=== PATIENT | female | born 1980 | race Caucasian/White ===

== ENCOUNTER 2023-01-31 12:29 | Emergency (ER) | payer OTHER ==
[~2023-01-31] VITALS: Wt 63.5 kg
== END 2023-01-31 16:18 | disposition home or self-care (01) ==
LOC: ED 12:29
DX: S90.31XA Contusion of right foot, initial encounter (principal); Z88.1 Allergy status to other antibiotic agents; W20.8XXA Other cause of strike by thrown, projected or falling object, initial encounter; Y93.89 Activity, other specified; Y92.69 Other specified industrial and construction area as the place of occurrence of the external cause; Y99.0 Civilian activity done for income or pay

== ENCOUNTER 2023-08-22 09:44 | Emergency (ER) | payer BC ==
[~2023-08-22] VITALS: Ht 172.7 cm; Wt 54.0 kg
[2023-08-22] MEDS ORDERED: METHIMAZOLE10 MG PO (10:19)
[2023-08-22] MEDS ORDERED: METFORMIN HYD1000 MG PO (10:19)
[2023-08-22] MEDS ORDERED: PROPRANOLOL HCL10 MG PO (10:19)
[2023-08-22] MEDS ORDERED: VIBRAMYCIN100 MG PO (18:04)
[2023-08-22] MEDS ORDERED: HYDROCODONE-AC1 EAC1 PO (18:04)
== END 2023-08-22 14:39 | disposition left against medical advice (07) ==
LOC: ED 09:44
DX: L02.416 Cutaneous abscess of left lower limb (principal); Z53.21 Procedure and treatment not carried out due to patient leaving prior to being seen by health care provider

== ENCOUNTER 2023-08-22 16:39 | Emergency (ER) | payer BC ==
[~2023-08-22] VITALS: Ht 172.7 cm; Wt 54.0 kg
[~2023-08-22 16:39] MED LIST: METFORMIN HYD1000 MG PO; METHIMAZOLE10 MG PO; PROPRANOLOL HCL10 MG PO
[2023-08-22] MEDS ORDERED: HYDROCODONE-AC1 EAC1 PO (18:04)
[2023-08-22] MEDS ORDERED: VIBRAMYCIN100 MG PO (18:04)
== END 2023-08-22 18:22 | disposition home or self-care (01) ==
LOC: ED 16:39
DX: L02.416 Cutaneous abscess of left lower limb (principal); E11.9 Type 2 diabetes mellitus without complications; F17.200 Nicotine dependence, unspecified, uncomplicated; Z88.6 Allergy status to analgesic agent; Z88.8 Allergy status to other drugs, medicaments and biological substances; Z79.899 Other long term (current) drug therapy

== ENCOUNTER 2023-08-25 07:14 | Emergency (ER) | payer BC ==
[~2023-08-25] VITALS: Ht 154.9 cm; Wt 54.0 kg
[~2023-08-25 07:14] MED LIST changes: +HYDROCODONE-AC1 EAC1 PO; +VIBRAMYCIN100 MG PO
[2023-08-25 07:49] LABS: EOS # 0.1 10*3/uL (0.0-0.4); EOS % 1.2 % (1.0-4.0); HEMATOCRIT 45.1 % (37.0-47.0); LYMPH # 1.3 10*3/uL (1.3-4.4); LYMPH % 26.2 % (27.0-41.0); MEAN CELL VOLUME 79.4 fl (81.0-99.0); MEAN CORPUSCULAR HGB 26.9 pg (27.0-31.0); MEAN CORPUSCULAR HGB CONC 33.9 g/dl (33.0-37.0); MEAN PLATELET VOLUME 11.4 fl (9.6-12.3); MONO # 0.7 10*3/uL (0.1-1.0); MONO % 13.3 % (3.0-9.0); NEUT % 58.9 % (47.0-73.0); PLATELET COUNT AUTOMATED 260 10*3/uL (130-400); RED BLOOD COUNT 5.68 10*6/uL (4.10-5.10); RED CELL DISTRI WIDTH 12.6 % (0-14.5); WHITE BLOOD COUNT 5.1 10*3/uL (4.8-10.8)
[2023-08-25] MEDS ORDERED: CLINDAMYCIN HC300 MG PO (08:15)
[2023-08-25] MEDS ORDERED: COLACE 2-IN-11 EACH PO (08:15)
[2023-08-25 11:41] LABS: ALKALINE PHOSPHATASE 115 U/L (46-116); BUN 9 mg/dl (9-23); CHLORIDE 96 mmol/L (98-107); POTASSIUM 3.9 mmol/L (3.4-5.1); SGPT/ALT 9 U/L (5-49); TOTAL PROTEIN 7.1 gm/dL (6.0-8.0)
== END 2023-08-25 10:55 | disposition home or self-care (01) ==
LOC: ED 07:14
PROVIDERS: Emergency Medicine
DX: L02.416 Cutaneous abscess of left lower limb (principal); E11.65 Type 2 diabetes mellitus with hyperglycemia; Z88.6 Allergy status to analgesic agent; Z88.1 Allergy status to other antibiotic agents; Z88.8 Allergy status to other drugs, medicaments and biological substances; Z79.2 Long term (current) use of antibiotics; Z79.899 Other long term (current) drug therapy

== ENCOUNTER 2023-10-29 09:28 | Emergency (ER) | payer SELFPAY ==
[~2023-10-29] VITALS: Ht 172.7 cm; Wt 54.4 kg
[~2023-10-29 09:28] MED LIST changes: +CLINDAMYCIN HC300 MG PO; +COLACE 2-IN-11 EACH PO
[2023-10-29] MEDS ORDERED: MORPHINE Sulfate 2 MG/ML SYR IV ONE (09:45)
[2023-10-29] MEDS ORDERED: Metoclopramide Hydrochloride 10 MG/2 ML AMP IV ONE (09:45)
[2023-10-29] MEDS ORDERED: SODIUM CHLORIDE 0.9% 1,000 ML IV ONE (09:45)
[2023-10-29] MEDS ORDERED: FAMOTIDINE 50 ML IV ONE (09:45)
[2023-10-29] MEDS ORDERED: IOHEXOL 300 MG/ML 100 ML VIAL IV ONE (09:45)
[2023-10-29] MEDS ORDERED: diphenhydrAMINE hydrochloride 50 MG/ML VIAL IV ONE (09:45)
[2023-10-29 09:59] LABS: BILIRUBIN Negative (Negative); BLOOD Negative (Negative); CLARITY Clear (Clear); COLOR Yellow (Yellow); GLUCOSE 3+ (Negative); KETONE 3+ (Negative); LEUKO ESTERASE Negative (Negative); NITRITE Negative (Negative); PH 5.5 (4.5-8.0); SPECIFIC GRAVITY >= 1.030 (1.001-1.030); UROBILINOGEN 0.2 E.U./dl (0.0-1.0)
[2023-10-29 10:04] LABS: EOS # 0.1 10*3/uL (0.0-0.4); HEMATOCRIT 45.7 % (37.0-47.0); LYMPH # 2.2 10*3/uL (1.3-4.4); MEAN CELL VOLUME 80.5 fl (81.0-99.0); MEAN CORPUSCULAR HGB 27.3 pg (27.0-31.0); MEAN CORPUSCULAR HGB CONC 33.9 g/dl (33.0-37.0); MEAN PLATELET VOLUME 11.1 fl (9.6-12.3); NEUT # 3.2 10*3/uL (2.3-7.9); NEUT % 48.5 % (47.0-73.0); PLATELET COUNT AUTOMATED 259 10*3/uL (130-400); RED BLOOD COUNT 5.68 10*6/uL (4.10-5.10); WHITE BLOOD COUNT 6.5 10*3/uL (4.8-10.8)
[2023-10-29 10:24] LABS: BACTERIA TRACE; RBC 0-2 rbc/hpf (0-2); WBC 0-2 wbc/hpf (0-5)
[2023-10-29 10:39] LABS: ALKALINE PHOSPHATASE 94 U/L (46-116); BUN 8 mg/dl (9-23); CHLORIDE 97 mmol/L (98-107); LIPASE 38 U/L (12-53); POTASSIUM 4.1 mmol/L (3.4-5.1); SGPT/ALT 9 U/L (5-49); TOTAL PROTEIN 6.8 gm/dL (6.0-8.0)
[2023-10-29] MEDS ORDERED: INSULIN REGULAR, HUMAN 1 UNIT/0.01 ML IV ONE ×2 (11:00→12:25)
[2023-10-29] MEDS ORDERED: ONDANSETRON4 MG SL (12:22)
[2023-10-29] MEDS ORDERED: DICYCLOMINE HYD10 MG PO (12:22)
[2023-10-29] MEDS ORDERED: METFORMIN HYD1000 MG PO (12:22)
== END 2023-10-29 12:37 | disposition home or self-care (01) ==
LOC: ED 09:28
PROVIDERS: Emergency Medicine
DX: K52.9 Noninfective gastroenteritis and colitis, unspecified (principal); E11.65 Type 2 diabetes mellitus with hyperglycemia; Z88.6 Allergy status to analgesic agent; Z88.8 Allergy status to other drugs, medicaments and biological substances; Z87.891 Personal history of nicotine dependence

== ENCOUNTER 2023-12-01 08:34 | Inpatient (IN) | payer BC ==
[~2023-12-01] VITALS: Ht 172.7 cm; Wt 54.7 kg
[~2023-12-01 08:34] MED LIST changes: +DICYCLOMINE HYD10 MG PO; +ONDANSETRON4 MG SL
[2023-12-01 08:44] VITALS: BP 128/82
[2023-12-01] MEDS ORDERED: Ondansetron Hydrochloride 4 MG/2 ML VIAL IV ONE (08:55)
[2023-12-01] MEDS ORDERED: MORPHINE Sulfate 2 MG/ML SYR IV ONE (08:55)
[2023-12-01] MEDS ORDERED: SODIUM CHLORIDE 0.9% 1,000 ML IV ONE ×2 (08:55→10:35)
[2023-12-01 09:06] LABS: BASO % 0.2 % (0.0-1.0); EOS # 0.1 10*3/uL (0.0-0.4); EOS % 1.4 % (1.0-4.0); HEMATOCRIT 47.5 % (37.0-47.0); LYMPH # 2.7 10*3/uL (1.3-4.4); LYMPH % 40.4 % (27.0-41.0); MEAN CELL VOLUME 80.5 fl (81.0-99.0); MEAN CORPUSCULAR HGB 27.6 pg (27.0-31.0); MEAN CORPUSCULAR HGB CONC 34.3 g/dl (33.0-37.0); MONO # 0.6 10*3/uL (0.1-1.0); MONO % 8.7 % (3.0-9.0); NEUT # 3.3 10*3/uL (2.3-7.9); NEUT % 48.8 % (47.0-73.0); PLATELET COUNT AUTOMATED 295 10*3/uL (130-400); RED CELL DISTRI WIDTH 11.9 % (0-14.5); WHITE BLOOD COUNT 6.7 10*3/uL (4.8-10.8)
[2023-12-01 09:47] LABS: ALKALINE PHOSPHATASE 118 U/L (46-116); BUN 13 mg/dl (9-23); CHLORIDE 97 mmol/L (98-107); POTASSIUM 4.7 mmol/L (3.4-5.1); SGPT/ALT 11 U/L (5-49); TOTAL PROTEIN 7.3 gm/dL (6.0-8.0)
[2023-12-01 10:10] LABS: VENOUS PH 7.248 (7.37-7.45)
[2023-12-01] MEDS ORDERED: INSULIN REGULAR IN 0.9 % NACL 100 ML IV SCH ×2 (10:15→11:25)
[2023-12-01] MEDS ORDERED: INSULIN REGULAR, HUMAN 1 UNIT/0.01 ML IV ONE (10:15)
[2023-12-01 10:30] VITALS: BP 128/85
[2023-12-01] MEDS ORDERED: SODIUM CHLORIDE 0.9% 1,000 ML IV SCH (10:35)
[2023-12-01] MEDS ORDERED: Ondansetron Hydrochloride 4 MG/2 ML VIAL IV PRN (11:20)
[2023-12-01] MEDS ORDERED: DEXTROSE 5% SALINE 0.9% 1,000 ML IV SCH (12:55)
[2023-12-01 13:00] VITALS: BP 112/67
[2023-12-01 14:05] VITALS: BP 109/68
[2023-12-01 14:27] LABS: BUN 10 mg/dl (9-23); CHLORIDE 111 mmol/L (98-107); POTASSIUM 3.8 mmol/L (3.4-5.1)
[2023-12-01] MEDS ORDERED: DEXTROSE 10 % IN WATER 250 ML IV PRN ×2 (15:25→18:45)
[2023-12-01] MEDS ORDERED: Insulin Glargine, Recombinan 1 UNIT/0.01 ML SC SCH (15:45)
[2023-12-01 16:00] VITALS: BP 114/69
[2023-12-01] MEDS ORDERED: INSULIN LISPRO 1 UNIT/0.01 ML SQ SCH (16:30)
[2023-12-01 18:15] LABS: VENOUS PH 7.336 (7.37-7.45)
[2023-12-01 18:32] LABS: BUN 9 mg/dl (9-23); CHLORIDE 106 mmol/L (98-107); POTASSIUM 3.7 mmol/L (3.4-5.1)
[2023-12-01 20:00] VITALS: BP 136/86
[2023-12-01] MEDS ORDERED: Propranolol Hydrochloride 10 MG TAB PO SCH (22:00)
[2023-12-01] MEDS ORDERED: METHIMAZOLE 5 MG TABLET PO SCH (22:00)
[2023-12-01 22:08] LABS: VENOUS PH 7.375 (7.37-7.45)
[2023-12-01 22:41] LABS: BUN 9 mg/dl (9-23); CHLORIDE 104 mmol/L (98-107); POTASSIUM 4.5 mmol/L (3.4-5.1)
[2023-12-01] MEDS ORDERED: INSULIN REGULAR, HUMAN 1 UNIT/0.01 ML SC ONE (22:50)
[2023-12-02] VITALS: BP 126/78
[2023-12-02 04:00] VITALS: BP 109/67
[2023-12-02 04:19] LABS: BASO % 0.2 % (0.0-1.0); EOS # 0.2 10*3/uL (0.0-0.4); EOS % 2.7 % (1.0-4.0); HEMATOCRIT 40.4 % (37.0-47.0); LYMPH # 3.3 10*3/uL (1.3-4.4); LYMPH % 50.7 % (27.0-41.0); MEAN CELL VOLUME 80.6 fl (81.0-99.0); MEAN CORPUSCULAR HGB 27.5 pg (27.0-31.0); MEAN CORPUSCULAR HGB CONC 34.2 g/dl (33.0-37.0); MEAN PLATELET VOLUME 10.9 fl (9.6-12.3); MONO # 0.8 10*3/uL (0.1-1.0); MONO % 11.9 % (3.0-9.0); NEUT # 2.2 10*3/uL (2.3-7.9); PLATELET COUNT AUTOMATED 228 10*3/uL (130-400); RED BLOOD COUNT 5.01 10*6/uL (4.10-5.10); RED CELL DISTRI WIDTH 12.3 % (0-14.5); WHITE BLOOD COUNT 6.6 10*3/uL (4.8-10.8)
[2023-12-02 04:45] LABS: ALKALINE PHOSPHATASE 84 U/L (46-116); BUN 12 mg/dl (9-23); CHLORIDE 106 mmol/L (98-107); CHOLESTEROL 190 mg/dL (<200); FREE T4 3.14 ng/dl (0.89-1.76); LDL CHOLESTEROL 96 mg/dL (9-159); POTASSIUM 3.7 mmol/L (3.4-5.1); SGPT/ALT 16 U/L (5-49); TOTAL PROTEIN 5.5 gm/dL (6.0-8.0); TRIGLYCERIDES 273 mg/dl (<150)
[2023-12-02] MEDS ORDERED: Pantoprazole Sodium 40 MG VIAL IV SCH (06:00)
[2023-12-02 07:10] LABS: VITAMIN D, 25-HYDROXY 23.5 ng/mL (30-100)
[2023-12-02 08:00] VITALS: BP 115/75
[2023-12-02] MEDS ORDERED: Enoxaparin Sodium 40 MG/0.4 ML SYR SC SCH (10:00)
[2023-12-02] MEDS ORDERED: Insulin Glargine, Recombinan 1 UNIT/0.01 ML SC SCH (10:00)
[2023-12-02 11:07] LABS: HEMOGOLBIN A1C >15.5 % (4.8-5.6)
[2023-12-02] MEDS ORDERED: LANTUS SOL100 UNIT/1 SC (11:28)
[2023-12-02] MEDS ORDERED: PROPRANOLOL HCL10 MG PO (11:28)
[2023-12-02] MEDS ORDERED: METHIMAZOLE10 MG PO (11:28)
[2023-12-02] MEDS ORDERED: METFORMIN HYD1000 MG PO (11:28)
[2023-12-02] MEDS ORDERED: HUMALOG100 UNIT/1 SC (11:28)
== END 2023-12-02 12:51 | disposition home or self-care (01) | DRG 638 ==
LOC: ED 08:34 → EDHOLD 10:51 → ICCU 13:21
PROVIDERS: Emergency Medicine; Student in an Organized Health Care Education/Training Program; ADMIT Internal Medicine; ATTEND Internal Medicine
DX: E11.10 Type 2 diabetes mellitus with ketoacidosis without coma (principal); E87.1 Hypo-osmolality and hyponatremia; R07.89 Other chest pain; E05.00 Thyrotoxicosis with diffuse goiter without thyrotoxic crisis or storm; R00.0 Tachycardia, unspecified; D75.1 Secondary polycythemia; Z88.8 Allergy status to other drugs, medicaments and biological substances; Z91.09 Other allergy status, other than to drugs and biological substances; Z79.899 Other long term (current) drug therapy; Z79.01 Long term (current) use of anticoagulants; Z79.2 Long term (current) use of antibiotics; Z87.891 Personal history of nicotine dependence

== ENCOUNTER → 2024-02-26 | Outpatient (CLI) | payer BC ==
[~2024-02-26] MED LIST changes: +HUMALOG100 UNIT/1 SC; +LANTUS SOL100 UNIT/1 SC
== END | disposition home or self-care (01) ==
LOC: RESCLI 03:12
PROVIDERS: ATTEND Internal Medicine
DX: E05.00 Thyrotoxicosis with diffuse goiter without thyrotoxic crisis or storm (principal); E11.9 Type 2 diabetes mellitus without complications; K21.9 Gastro-esophageal reflux disease without esophagitis; F32.9 Major depressive disorder, single episode, unspecified; Z79.84 Long term (current) use of oral hypoglycemic drugs; Z79.899 Other long term (current) drug therapy; Z88.1 Allergy status to other antibiotic agents; Z88.8 Allergy status to other drugs, medicaments and biological substances; Z98.890 Other specified postprocedural states

== ENCOUNTER → 2024-03-12 | Outpatient (CLI) | payer BC | END | disposition home or self-care (01) | LOC: CARD 11:50 | PROVIDERS: ATTEND Student in an Organized Health Care Education/Training Program | DX: R00.0 Tachycardia, unspecified (principal); E05.00 Thyrotoxicosis with diffuse goiter without thyrotoxic crisis or storm ==

== ENCOUNTER → 2024-03-25 | Outpatient (CLI) | payer BC | END | disposition home or self-care (01) | LOC: RESCLI 02:18 | PROVIDERS: ATTEND Student in an Organized Health Care Education/Training Program | DX: E11.9 Type 2 diabetes mellitus without complications (principal); E05.00 Thyrotoxicosis with diffuse goiter without thyrotoxic crisis or storm; K21.9 Gastro-esophageal reflux disease without esophagitis; F32.9 Major depressive disorder, single episode, unspecified; Z79.4 Long term (current) use of insulin; Z79.899 Other long term (current) drug therapy; Z88.3 Allergy status to other anti-infective agents; Z88.8 Allergy status to other drugs, medicaments and biological substances ==

== ENCOUNTER → 2024-05-07 | Outpatient (CLI) | payer BC ==
[2024-05-07 08:43] LABS: EOS # 0.1 10*3/uL (0.0-0.4); EOS % 2.1 % (1.0-4.0); HEMATOCRIT 45.8 % (37.0-47.0); LYMPH # 2.1 10*3/uL (1.3-4.4); LYMPH % 32.3 % (27.0-41.0); MEAN CELL VOLUME 79.1 fl (81.0-99.0); MEAN CORPUSCULAR HGB 27.3 pg (27.0-31.0); MEAN CORPUSCULAR HGB CONC 34.5 g/dl (33.0-37.0); MEAN PLATELET VOLUME 11.1 fl (9.6-12.3); MONO # 0.5 10*3/uL (0.1-1.0); MONO % 7.6 % (3.0-9.0); NEUT # 3.7 10*3/uL (2.3-7.9); NEUT % 57.8 % (47.0-73.0); PLATELET COUNT AUTOMATED 240 10*3/uL (130-400); RED BLOOD COUNT 5.79 10*6/uL (4.10-5.10); RED CELL DISTRI WIDTH 12.1 % (0-14.5); WHITE BLOOD COUNT 6.3 10*3/uL (4.8-10.8)
[2024-05-07 09:28] LABS: ALKALINE PHOSPHATASE 125 U/L (46-116); BUN 9 mg/dl (9-23); CHLORIDE 100 mmol/L (98-107); CHOLESTEROL 178 mg/dL (<200); FREE T4 2.27 ng/dl (0.89-1.76); LDL CHOLESTEROL 71 mg/dL (9-159); POTASSIUM 3.9 mmol/L (3.4-5.1); SGPT/ALT 18 U/L (5-49); TOTAL PROTEIN 6.8 gm/dL (6.0-8.0); TRIGLYCERIDES 250 mg/dl (<150)
[2024-05-08 12:08] LABS: HEMOGOLBIN A1C >15.5 % (4.8-5.6)
== END | disposition home or self-care (01) ==
LOC: LAB 08:23
PROVIDERS: Internal Medicine Endocrinology, Diabetes & Metabolism; Student in an Organized Health Care Education/Training Program; ATTEND Internal Medicine
DX: E05.00 Thyrotoxicosis with diffuse goiter without thyrotoxic crisis or storm (principal); E11.9 Type 2 diabetes mellitus without complications

== ENCOUNTER → 2024-07-22 | Outpatient (CLI) | payer BC ==
[~2024-07-22] MED LIST changes: +NEURONTIN100 MG PO
[2024-07-22 12:36] LABS: BASO % 0.1 % (0.0-1.0); EOS # 0.1 10*3/uL (0.0-0.4); EOS % 0.6 % (1.0-4.0); HEMATOCRIT 48.9 % (37.0-47.0); MEAN CORPUSCULAR HGB 26.7 pg (27.0-31.0); MEAN CORPUSCULAR HGB CONC 33.3 g/dl (33.0-37.0); MONO # 1.1 10*3/uL (0.1-1.0); MONO % 8.5 % (3.0-9.0); NEUT # 9.7 10*3/uL (2.3-7.9); NEUT % 74.3 % (47.0-73.0); PLATELET COUNT AUTOMATED 256 10*3/uL (130-400); RED BLOOD COUNT 6.11 10*6/uL (4.10-5.10); RED CELL DISTRI WIDTH 12.9 % (0-14.5)
[2024-07-22 13:10] LABS: ALKALINE PHOSPHATASE 126 U/L (46-116); BUN 15 mg/dl (9-23); CHLORIDE 106 mmol/L (98-107); FREE T4 1.18 ng/dl (0.89-1.76); LIPASE 26 U/L (12-53); POTASSIUM 3.7 mmol/L (3.4-5.1); SGPT/ALT 13 U/L (5-49); TOTAL PROTEIN 7.5 gm/dL (6.0-8.0)
== END | disposition home or self-care (01) ==
LOC: RESCLI 11:21
PROVIDERS: Student in an Organized Health Care Education/Training Program; ATTEND Internal Medicine
DX: R10.9 Unspecified abdominal pain (principal); E05.00 Thyrotoxicosis with diffuse goiter without thyrotoxic crisis or storm; E11.9 Type 2 diabetes mellitus without complications; R00.2 Palpitations; Z79.899 Other long term (current) drug therapy; Z88.6 Allergy status to analgesic agent; Z88.8 Allergy status to other drugs, medicaments and biological substances

== ENCOUNTER 2024-07-31 08:57 | Observation (INO) | payer BC ==
[~2024-07-31] VITALS: Ht 172.7 cm; Wt 74.8 kg
[~2024-07-31 08:57] MED LIST changes: -NEURONTIN100 MG PO
[2024-07-31 09:30] VITALS: BP 131/88
[2024-07-31 09:54] LABS: BASO % 0.2 % (0.0-1.0); EOS # 0.1 10*3/uL (0.0-0.4); EOS % 1.6 % (1.0-4.0); HEMATOCRIT 45.8 % (37.0-47.0); MEAN CELL VOLUME 79.8 fl (81.0-99.0); MEAN CORPUSCULAR HGB CONC 33.8 g/dl (33.0-37.0); MEAN PLATELET VOLUME 10.8 fl (9.6-12.3); MONO # 0.6 10*3/uL (0.1-1.0); MONO % 9.5 % (3.0-9.0); NEUT # 3.2 10*3/uL (2.3-7.9); NEUT % 53.3 % (47.0-73.0); PLATELET COUNT AUTOMATED 252 10*3/uL (130-400); RED BLOOD COUNT 5.74 10*6/uL (4.10-5.10); RED CELL DISTRI WIDTH 12.2 % (0-14.5); WHITE BLOOD COUNT 6.1 10*3/uL (4.8-10.8)
[2024-07-31 10:12] LABS: BUN 16 mg/dl (9-23); CHLORIDE 102 mmol/L (98-107); POTASSIUM 4.2 mmol/L (3.4-5.1)
[2024-07-31 10:39] LABS: BILIRUBIN Negative (Negative); BLOOD Negative (Negative); CLARITY Clear (Clear); COLOR Yellow (Yellow); GLUCOSE 3+ (Negative); KETONE 1+ (Negative); LEUKO ESTERASE Negative (Negative); NITRITE Negative (Negative); PH 5.5 (4.5-8.0); SPECIFIC GRAVITY >= 1.030 (1.001-1.030); UROBILINOGEN 0.2 E.U./dl (0.0-1.0)
[2024-07-31 10:51] LABS: RBC 0-2 rbc/hpf (0-2)
[2024-07-31] MEDS ORDERED: MORPHINE Sulfate 2 MG/ML SYR IV PRN (12:35)
[2024-07-31] MEDS ORDERED: BISACODYL 10 MG SUPP R PRN (12:35)
[2024-07-31] MEDS ORDERED: Dicyclomine Hydrochloride 20 MG TAB PO SCH (12:35)
[2024-07-31] MEDS ORDERED: TEMAZEPAM 15 MG CAP PO PRN (12:35)
[2024-07-31] MEDS ORDERED: Magnesium Hydroxide 30 ML UDC PO PRN (12:35)
[2024-07-31] MEDS ORDERED: ACETAMINOPHEN 650 MG SUPP R PRN (12:35)
[2024-07-31] MEDS ORDERED: ACETAMINOPHEN 325 MG TAB PO PRN (12:35)
[2024-07-31] MEDS ORDERED: Acetaminophen/Hydrocodone 5 MG/325 MG TABLET PO PRN (12:35)
[2024-07-31] MEDS ORDERED: Ondansetron Hydrochloride 4 MG/2 ML VIAL IV PRN (12:35)
[2024-07-31] MEDS ORDERED: BISACODYL 5 MG TAB PO PRN (12:35)
[2024-07-31] MEDS ORDERED: IOHEXOL 300 MG/ML 100 ML VIAL IV ONE (12:45)
[2024-07-31] MEDS ORDERED: GABAPENTIN 100 MG CAP PO ONE (15:05)
[2024-07-31] MEDS ORDERED: NEURONTIN100 MG PO (15:27)
[2024-08-01] MEDS ORDERED: Enoxaparin Sodium 40 MG/0.4 ML SYR SC SCH (10:00)
== END 2024-07-31 17:24 | disposition home or self-care (01) ==
LOC: ED 08:57 → EDHOLD 11:01
PROVIDERS: Internal Medicine; ADMIT Family Medicine; ATTEND Family Medicine
DX: R10.30 Lower abdominal pain, unspecified (principal); E87.1 Hypo-osmolality and hyponatremia; E11.65 Type 2 diabetes mellitus with hyperglycemia; R82.4 Acetonuria; E05.00 Thyrotoxicosis with diffuse goiter without thyrotoxic crisis or storm; G62.9 Polyneuropathy, unspecified; F41.9 Anxiety disorder, unspecified; F17.210 Nicotine dependence, cigarettes, uncomplicated; Z79.4 Long term (current) use of insulin; Z79.899 Other long term (current) drug therapy